=== PATIENT | female | born 1985 | race Caucasian/White ===

== ENCOUNTER 2021-01-05 12:16 | Inpatient (IN) | payer OTHER, SELFPAY ==
[2021-01-05] VITALS (20 sets, daily range): BP systolic 101–126; BP diastolic 56–77; PULSE 63–92; RESP 16; TEMP 35.9–36.5; O2SAT 97–99; BMI 33.1
[2021-01-05] MEDS: Lactated Ringers 1,000 ML 200 ML IV (12:40)
[2021-01-05 12:59] LABS: Absolute Lymphocyte Count 2.16 X10^3/uL (0.83-4.51); Basophil# 0.07 X10^3/uL; Basophil% 0.6 % (0-1); Eosinophil# 0.01 X10^3/uL; Eosinophils% 0.1 % (0-5); Hematocrit 39.1 % (37-47); Hemoglobin 13.5 g/dL (12.0-15.0); Lymphocyte # 2.16 X10^3/ul (0.83-4.51); Lymphocyte % 18.1 % (19-41); Mean Corp Hgb Conc 34.5 g/dL (32-36); Mean Corpuscular Hgb 32.8 pg (27.0-32.0); Mean Corpuscular Volume 94.9 fL (81-99); Mean Platelet Vol. 11.8 fl (6.2-12.0); Monocyte# 0.63 X10^3/uL; Monocyte% 5.3 % (0-10); NRBC Flagged by Analyzer 0 % (0-5); Neutrophil # 9.01 X10^3/uL (2.7-7.7); Neutrophil % 75.2 % (47-70); Platelet Count 178 K/mm3 (150-450); RBC Distribution Width CV 12.9 % (11.6-14.6); RBC Distribution Width SD 44.4 fl (35.1-43.9); Red Blood Count 4.12 M/mm3 (4.2-5.4)
--- NOTE | 2021-01-05 15:07 | PCM.HP.OB ---
HPI - General General Date of Admission: 01/05/21 Date of Service: 01/05/21 Chief Complaint: labor HPI Narrative JAMIE SCHREIBER, is a 35-year-old 3 para 2-0-0-2 who presents at 40-3/7 weeks complaining contractions getting more intense. No vaginal bleeding or leaking of fluid. has been complicated to date by advanced maternal age. She has a history of 2 previous uncomplicated vaginal deliveries. Maternal Data Information Final ESTEFANIA: 01/02/21 Gestational age: 40 3/7 PFSH PFSH Home Medications aspirin [Baby Aspirin] 81 mg PO DAILY 01/05/21 [History Last Taken 1 Day Ago ~01/04/21] ferrous sulfate 325 mg PO DAILY 01/05/21 [History Last Taken 1 Day Ago ~01/04/21] prenat.vits,harman,bfm-[id number] [ Vitamin] 1 tab PO DAILY 01/05/21 [History Last Taken 1 Day Ago ~01/04/21] Allergy/AdvReac Type Severity Reaction Status Date / Time No Known Allergies Allergy Verified 01/05/21 12:14 Social History Smoking Status: Never smoker History Elective abortions Hx Para 2 Spontaneous abortions Hx # Term Pregnancies Ectopic pregnancies Hx # Pregnancies Multiple births # of living children ROS Constitutional Constitutional: Denies fatigue, fever(s) or malaise Eyes Eyes: Denies change in vision ENT HEENT: Denies dizziness or headache(s) Cardiovascular Cardiovascular: Denies chest pain, dyspnea or lightheadedness Respiratory/Chest Respiratory/Chest: Denies cough or dyspnea Gastrointestinal Gastrointestinal: Denies change in bowel habits Genitourinary Genitourinary: Denies burning urination or genital lesions Integumentary Integumentary: Denies rash Neurologic Neurologic: Denies confusion, dizziness, headache(s), numbness or weakness Vital Signs Vital Signs Vital Signs: 01/05/21 11:58 01/05/21 13:36 01/05/21 14:07 Temperature 97.7 F L 97.2 F L Temperature Source Temporal Pulse Rate 63 Blood Pressure 115/75 BP Systolic 115 BP Diastolic 75 Pulse Ox 99 01/05/21 15:03 Temperature 97.0 F L Temperature Source Pulse Rate Blood Pressure BP Systolic BP Diastolic Pulse Ox Weight Weight: 90.4 kg Body Mass Index (BMI) 33.1 Physical Exam Const alert and no apparent distress General Appearance: cooperative HEENT normocephalic Resp normal respiratory effort Cardio regular rate GI soft to palpation GI Narrative: gravid, nontender, appropriate for gestational age Extremity no calf tenderness General Extremity: edema Skin no wounds Rashes: No rashes noted Psych activity/motor behavior normal Labs Labs Labs: Blood Type A POSITIVE Antibody Screen NEGATIVE Hct 39.1 % (37-47) Hgb 13.5 g/dL (12.0-15.0) Assessment & Plan (1) 40 weeks gestation of : PLAN: Patient admitted in labor. Estimated weight is less than 4500 g, pelvis is clinically adequate to expect vaginal delivery. May use nitrous oxide, IV meds or epidural along with alternative pain control methods as needed. Will augment with Pitocin if needed. Group B strep prophylaxis initiated. (2) Advanced maternal age during in third trimester: (3) Spontaneous onset of labor: (4) GBS (group B Streptococcus carrier), +RV culture, currently :
--- NOTE | 2021-01-05 15:12 | EX.PCM.OBRPT ---
Maternal Data Information Final ESTEFANIA: 01/02/21 Gestational age: 40 3/7 Vaginal Delivery Maternal Presentation Maternal Presentation: Active Labor Operative Information Date of Procedure: 01/05/21 Pre-Operative Diagnosis: labor Post-Operative Diagnosis: same Surgery / Procedure Performed: Spontaneous Vaginal Delivery Type of Anesthesia: Local with 1% Lidocaine (10 cc) Special Medications: none Drain: - (none) Estimated Blood Loss: 200 Time of Delivery: 16:13 Findings Description of Procedure: A vigorous male was delivered HAYDE over a second-degree perineal laceration. The anterior shoulder was delivered through the loose nuchal cord. The remainder the was delivered with maternal pushing and gentle traction only in less than 15 seconds. The Pitocin infusion was initiated for active management of the third stage. The cord was clamped and cut after 1 minute. The infant was attended to by the waiting nursing staff. The placenta was delivered spontaneously and intact. The cervix and vagina were intact. The second-degree perineal laceration was repaired with 2-0 Vicryl suture in a running standard fashion. Sponge and needle counts were correct. A vaginal sweep was completed by me. Presentation: HAYDE Amniotic Membrane Rupture Type: Spontaneous Amniotic Fluid Description: Moderate meconium Placental Delivery Description: Spontaneous Placenta Disposition: [facility] Cord Vessel Description: 3 Vessels Cord Entanglement: Around neck x 1, loose Nuchal Cord Compression: Without compression Infant A Gender: Male (Luke) (1 minute): 8 (5 minute): 9 Delayed Cord Clamping: Yes Post Vaginal Delivery Medications Given After Delivery: IV Pitocin Episiotomy Description: None Laceration: 2nd degree Complication Complications: None Admit VTE Documentation VTE Present on Admission: No Reason Prophylaxis Not Ordered: Procedure Not Indicated
[2021-01-05] MEDS: Oxytocin 30 units/NS 500 ml 30 UNITS/500 ML IV.SOLN 334 UNITS IV (16:15)
[2021-01-05] MEDS: Ibuprofen 600 MG Tablet PO ×2 (17:26→23:42)
[2021-01-05] MEDS: Senna/Docusate Sodium 1 Tablet PO (17:26)
[2021-01-05] MEDS: 0.9% Saline Lock 10 ML Syringe IV (18:54)
[2021-01-05] MEDS: Acetaminophen 500 MG Tablet 1000 MG PO (18:54)
[2021-01-05] MEDS: Benzocaine/Lanolin/Aloe Vera 1 SPRAY EACH TOPICAL (19:27)
[2021-01-06] VITALS (8 sets, daily range): BP systolic 105–122; BP diastolic 58–77; PULSE 70–79; RESP 16–18; TEMP 36.3–36.4; O2SAT 98–99
[2021-01-06] MEDS: Acetaminophen 500 MG Tablet 1000 MG PO ×3 (03:08→16:09)
[2021-01-06] MEDS: Ibuprofen 600 MG Tablet PO ×2 (06:46→12:40)
--- NOTE | 2021-01-06 08:25 | PCM.PN.OB ---
Subjective Subjective Denies complaints Objective Data Objective Data Vital Signs: Vital Signs Temp Pulse Resp BP Pulse Ox 97.5 F L 77 18 116/77 99 01/06/21 04:00 01/06/21 04:00 01/06/21 04:00 01/06/21 04:00 01/06/21 04:00 Oxygen Delivery Method Room Air Weight: 199 lb 4.766 oz Body Mass Index (BMI) 33.1 Intake & Output: Intake and Output for Last 24 Hours 01/04/21 01/05/21 01/06/21 23:59 23:59 23:59 Intake Total 1821.67 / 1821.67 Output Total 175 / 175 Balance 1646.67 / 1646.67 Lab / Micro Data Result Diagrams: 01/05/21 12:40 Labs: Laboratory Results - last 24 hr 01/05/21 12:40: WBC 12.0 H, RBC 4.12 L, Hgb 13.5, Hct 39.1, MCV 94.9, MCH 32.8 H, MCHC 34.5, RDW Std Deviation 44.4 H, RDW Coeff of [place] 12.9, Plt Count 178, MPV 11.8, Immature Gran % (Auto) 0.700, Neut % (Auto) 75.2 H, Lymph % (Auto) 18.1 L, [place] % (Auto) 5.3, Eos % (Auto) 0.1, Baso % (Auto) 0.6, Absolute Neuts (auto) 9.0 H, Absolute Lymphs (auto) 2.16, Nucleated RBC % 0 01/05/21 12:40: Blood Type A POSITIVE, Antibody Screen NEGATIVE Micro: Microbiology 01/05/21 12:40 Nasal Secretion SARS-CoV-2 Antigen (Rapid) - Final Physical Exam Const alert, oriented x3 and no apparent distress HEENT normocephalic GI soft to palpation, non-tender and non-distended GI Narrative: fundus firm, mid & below umbilicus Extremity normal to inspection and no calf tenderness Assessment & Plan (1) 40 weeks gestation of : COMMENT: PPD#1 PLAN: Routine care D/c home later today per patient request
--- NOTE | 2021-01-06 08:31 | PCM.DC ---
Discharge Instructions Diet Discharge Diet: No restrictions Activity Discharge Activity: May Shower May resume sexual activity in: 6 weeks Weight Bearing Status: Weight bearing as tolerated Dressing / Incision Call your doctor if you observe: Fever of 101 or Higher, Coldness, Increased Pain, Change in Color, Inability to urinate, Inability to have a bowel movement, Using more than 1 pad per hour, Shortness of breath, Dizziness, Fainting spells, Chest pain, Increased palpitations (irregular heartbeat), Calf discomfort and Uncontrolled pain Follow Up Care Please Follow Up With: Meena Rodriguez MD When: Follow up in 2 and 6 weeks for visits. Test Results: Test results from this visit will be discussed in further detail at your follow-up appointment, if applicable. Discharge Plan Admission Admit Date/Time: 01/05/21 12:16 Primary Reason for Your Visit: Vaginal delivery Attending Provider: Meena Rodriguez Discharge Orders/Prescriptions Prescriptions: New acetaminophen 500 mg Tablet 1,000 mg PO Q6H PRN PRN (Reason: Pain 1-10 Or Fever) Qty: 0 RF: 0 ibuprofen 600 mg Tablet 600 mg PO Q6H PRN PRN (Reason: Pain Score 1-3) Qty: 0 RF: 0 Continued prenat.vits,harman,[id number] Tablet 1 tab PO DAILY RF: 0 Discontinued ferrous sulfate 325 mg (65 mg iron) Tablet 325 mg PO DAILY RF: 0 aspirin [Baby Aspirin] 81 mg Tablet,Chewable 81 mg PO DAILY RF: 0 Disposition Disposition (needs filled in before D/C Order can be placed): Home, Self Care
[2021-01-06] MEDS: Senna/Docusate Sodium 1 Tablet PO (12:40)
== END 2021-01-06 17:30 | disposition home or self-care (01) | DRG 806 ==
LOC: WPOUT 12:19 → WP 12:19
PROVIDERS: Admitting Provider Obstetrics & Gynecology; Visit Provider Obstetrics & Gynecology
DX: O48.0 Post-term pregnancy (principal); O98.82 Other maternal infectious and parasitic diseases complicating childbirth; Z37.0 Single live birth; B95.1 Streptococcus, group B, as the cause of diseases classified elsewhere; O70.1 Second degree perineal laceration during delivery; O77.0 Labor and delivery complicated by meconium in amniotic fluid; O69.81X0 Labor and delivery complicated by cord around neck, without compression, not applicable or unspecified; Z3A.40 40 weeks gestation of pregnancy; Z79.82 Long term (current) use of aspirin
CPT/HCPCS: 59025; 59050; 85025; 86850; 86900; 86901; 87426; 99218; J7120; A4216; G0378

== ENCOUNTER 2023-09-10 07:21 | Inpatient (IN) | payer OTHER, SELFPAY ==
[2023-09-10] VITALS (28 sets, daily range): BP systolic 91–130; BP diastolic 57–103; PULSE 67–110; RESP 16–18; TEMP 35.6–36.5; O2SAT 98–99; BMI 33.9
[2023-09-10] MEDS: Lactated Ringers 1,000 ML 50 ML IV (08:00)
--- NOTE | 2023-09-10 08:11 | PCM.HP.OB ---
HPI - General General Date of Admission: 09/10/23 HPI Narrative JAMIE SCHREIBER, is a 38 F @ 41 weeks who presents for IOL for POST EDC, AMA LGA fetus. PFSH PFSH Medical History (Updated 09/10/23 @ 08:33 by Racquel Leal) Oligohydramnios Home Medications ?Medication ?Instructions ?Recorded ?Last Taken ?Type prenat.vits,harman,vmo-cvcm-[id number] 1 tab PO DAILY 01/05/21 09/10/23 History acetaminophen 500 mg tablet 1,000 mg (2 x 500 mg) PO Q6H PRN 01/06/21 Unknown Rx PRN Pain 1-10 Or Fever #0 tabs ibuprofen 600 mg tablet 600 mg PO Q6H PRN PRN Pain Score 01/06/21 Unknown Rx 1-3 #0 tabs aspirin 81 mg capsule 81 mg PO DAILY AMA 09/10/23 09/10/23 History magnesium 250 mg tablet 250 mg PO DAILY anemia 09/10/23 09/10/23 History Allergy/AdvReac Type Severity Reaction Status Date / Time No Known Allergies Allergy Verified 09/10/23 08:09 Surgical History (Updated 01/05/21 @ 16:53 by Terry Gallardo) History of surgery Social History Smoking Status: Never smoker History Elective abortions Hx Para 3 Spontaneous abortions Hx # Term Pregnancies Ectopic pregnancies Hx # Pregnancies Multiple births # of living children NST FHR Rate Baby A Baseline: 145 Variability:: Moderate Accelerations:: 15 x 15 Decelerations:: None NST Reactive:: Yes FHR Category:: Category I Uterine Activity:: irregular Physical Exam Narrative VE; 1.5cm- transcervical darden placed Labs Labs Labs: Blood Type A POSITIVE Antibody Screen NEGATIVE Hct 38.3 % (37-47) Hgb 12.9 g/dL (12.0-15.0) Syphilis Total Ab Pending Rhogam given: No Assessment & Plan (1) AMA (advanced maternal age) multigravida 35+: (2) LGA (large for gestational age) fetus affecting mother, antepartum: (3) 41 weeks gestation of : PLAN: Plan Admit to L&D [place] FHR/TOCO Epidural if requested for pain Monitor VS Anticipate darden/pitocin for IOL
[2023-09-10] MEDS: 0.9% Normal Saline Single 100 ML IV.SOLN. INTRA-UTER (08:40)
[2023-09-10 08:51] LABS: Absolute Lymphocyte Count 2.49 X10^3/uL (0.83-4.51); Absolute Neutrophil Count 5.9 X10^3/uL (2.0-7.7); Basophil# 0.05 X10^3/uL; Basophil% 0.5 % (0-1); Eosinophil# 0.05 X10^3/uL; Eosinophils% 0.5 % (0-5); Hematocrit 38.3 % (37-47); Hemoglobin 12.9 g/dL (12.0-15.0); Lymphocyte # 2.49 X10^3/ul (0.83-4.51); Lymphocyte % 26.9 % (19-41); Mean Corp Hgb Conc 33.7 g/dL (32-36); Mean Corpuscular Hgb 32.2 pg (27.0-32.0); Mean Corpuscular Volume 95.5 fL (81-99); Mean Platelet Vol. 11.9 fl (6.2-12.0); Monocyte# 0.73 X10^3/uL; Monocyte% 7.9 % (0-10); NRBC Flagged by Analyzer 0 % (0-5); Neutrophil # 5.86 X10^3/uL (2.7-7.7); Neutrophil % 63.3 % (47-70); Platelet Count 191 K/mm3 (150-450); Red Blood Count 4.01 M/mm3 (4.2-5.4); White Blood Count 9.3 K/mm3 (4.4-11.0)
[2023-09-10] MEDS: Oxytocin 15 Units/NS 250ml 15 UNITS/250 ML IV.SOLN 2 UNITS IV (09:00)
[2023-09-10] MEDS: Penicillin G Pot 5,000,000 UNITS in 0.9% Normal Saline (100mL MB+) 100 ML 150 UNITS IV (09:02)
[2023-09-10 09:23] LABS: Syphilis Antibodies Non-reactive
--- NOTE | 2023-09-10 12:48 | PCM.PN.BLA ---
Progress Note pt seen at bedside, VE performed VE; /-2 SROM- clear fluid.
[2023-09-10] MEDS: Penicillin G 3,000,000 Units 50 ML 100 UNITS IV (13:03)
--- NOTE | 2023-09-10 14:37 | EX.PCM.OBRPT ---
Assessment & Plan (1) 41 weeks gestation of : (2) AMA (advanced maternal age) multigravida 35+: (3) (spontaneous vaginal delivery): Maternal Data Information Final ESTEFANIA: 09/03/23 Gestational age: 41 Vaginal Delivery Maternal Presentation Maternal Presentation: Medically Indicated Induction Type of Induction: Pitocin, Moss Bulb and Amniotomy Operative Information Date of Procedure: 09/10/23 Pre-Operative Diagnosis: labor Post-Operative Diagnosis: same Surgery / Procedure Performed: Spontaneous Vaginal Delivery Type of Anesthesia: None Special Medications: none Drain: - (none) Estimated Blood Loss: 200 Time of Delivery: 14:20 Findings Description of Procedure: A vigorous male was delivered ANIKA over an intact perineum. A loose nuchal cord ?1 was easily reduced. The remainder the was delivered with maternal pushing and gentle traction only in less than 15 seconds. The Pitocin infusion was initiated for active management of the third stage. The cord was clamped and cut after cord pulsations ceased. The was attended to by the waiting nursing staff. The placenta was delivered spontaneously and intact. The cervix and vagina were intact. Sponge and needle counts were correct. A vaginal sweep was completed by me. Presentation: ANIKA Amniotic Membrane Rupture Type: Artificial Amniotic Fluid Description: Clear Placental Delivery Description: Spontaneous Placenta Disposition: [facility] Specimen(s) Removed: none Cord Vessel Description: 3 Vessels Cord Entanglement: Around neck x 1, loose Nuchal Cord Compression: Without compression A Gender: Male (Jeovany) (1 minute): 8 (5 minute): 9 Delayed Cord Clamping: Yes Post Vaginal Delivery Medications Given After Delivery: IV Pitocin Episiotomy Description: None Laceration: None Complication Complications: None
[2023-09-10] MEDS: Oxytocin 15 Units/NS 250ml 15 UNITS/250 ML IV.SOLN 83 UNITS IV (14:55)
[2023-09-10] MEDS: Acetaminophen 500 MG Tablet 1000 MG PO ×2 (16:39→22:52)
[2023-09-10] MEDS: Ibuprofen 600 MG Tablet PO ×2 (17:56→23:48)
[2023-09-10] MEDS: 0.9% Saline Lock 10 ML Syringe IV (17:56)
[2023-09-11] VITALS (12 sets, daily range): BP systolic 91–115; BP diastolic 64–74; PULSE 71–86; RESP 16; TEMP 36.1–36.6; O2SAT 96–99
[2023-09-11] MEDS: Acetaminophen 500 MG Tablet 1000 MG PO ×2 (05:10→13:31)
[2023-09-11] MEDS: Ibuprofen 600 MG Tablet PO ×2 (06:02→14:34)
--- NOTE | 2023-09-11 09:00 | DS.PCM_ITS ---
Providers Date of Admission: 09/10/23 Primary Care Physician: Dr. Emily Chacon MD Reason For Visit: VAGINAL DELIVERY Diagnosis Discharge Diagnosis (1) 41 weeks gestation of : Status: Acute Code(s): O48.0 - Post-term ; Z3A.41 - 41 weeks gestation of (2) AMA (advanced maternal age) multigravida 35+: Status: Acute Code(s): O09.529 - Supervision of elderly multigravida, unspecified trimester (3) (spontaneous vaginal delivery): Status: Acute Code(s): O80 - Encounter for full-term uncomplicated delivery Medications at Discharge Home Medications prenat.vits,harman,qrk-pccc-gvvcu 1 tab PO DAILY 01/05/21 acetaminophen 500 mg tablet 1,000 mg (2 x 500 mg) PO Q6H PRN PRN Pain 1-10 Or Fever #0 tabs 01/06/21 ibuprofen 600 mg tablet 600 mg PO Q6H PRN PRN Pain Score 1-3 #0 tabs 01/06/21 aspirin 81 mg capsule 81 mg PO DAILY AMA 09/10/23 magnesium 250 mg tablet 250 mg PO DAILY anemia 09/10/23 Hospital Course Operations None Procedures None Summary of Care Provided Minutes Spent on Discharge: 15 Hospital Course: Patient had . Hospital course was uneventful Physical Exam Narrative Patient seen at bedside. without difficulty. Lochia decreasing. Denies pain. Desires discharge home today. Const alert and no apparent distress General Appearance: cooperative and comfortable Exam Limitations: no limitations HEENT normocephalic Eyes General Eye: normal appearance of both eyes Neck full ROM General: normal visual inspection Chest Chest: symmetrical chest wall rise Resp normal respiratory effort and normal air movement Effort and Inspection: symmetric chest movement Auscultation: clear to auscultation bilaterally Cardio regular rate and regular rhythm GI normal to inspection, nondistended, normoactive bowel sounds Back/Spine normal ROM Extremity full ROM and no calf tenderness General Extremity: normal exam except as noted Skin no rashes or lesions noted Neuro CN's II-XII intact bilaterally Psych mental status grossly normal Weight / BMI Weight Weight: 204 lb Body Mass Index (BMI) 33.9 ABG / Lab / Microbiology Data 09/10/23 08:00 Laboratory: Laboratory Results - last 24 hr 09/10/23 08:00: Syphilis Total Ab Non-reactive, Antibody Screen NEGATIVE D/C Instructions Discharge Diet: No restrictions May resume sexual activity in: 6-8 weeks Weight Bearing Status: Weight bearing as tolerated Call your doctor if you observe: Fever of 101 or Higher, Inability to urinate, Using more than 1 pad per hour, Shortness of breath, Chest pain, Calf discomfort and Uncontrolled pain When: 2 weeks virtual visit/ 6 weeks in office Meaningful Use Info Meaningful Use Meaningful Use Diagnoses (Choose all that apply): None applicable Ischemic Stroke Statin Dosing Therapy Reference: STATIN DOSE THERAPY REFERENCE: * Patients > 75 years receive moderate or high dose statin therapy. * Patients 75 years or YOUNGER should receive HIGH intensity statin dose unless contraindicated. You will be required to document reason for non-treatment if statin daily dose does not meet guidelines. HIGH DOSE STATIN THERAPY DAILY Atorvastatin > than or = to 40 mg Rosuvastatin > than or = to 20 mg Amlodipine + Atorvastatin > than or = to 2.5/40 mg Ezetimibe + Simvastatin 10/80 mg Simvastatin 80mg Discharge Plan Admission Admit Date/Time: 09/10/23 07:21 Attending Provider: Meena Rodriguez Primary Care Provider: Emily Chacon Discharge Orders/Prescriptions Prescriptions: No Action prenat.vits,harman,yif-jblz-muion Tablet 1 tab PO DAILY acetaminophen 500 mg Tablet 1,000 mg PO Q6H PRN PRN (Reason: Pain 1-10 Or Fever) Qty: 0 0RF ibuprofen 600 mg Tablet 600 mg PO Q6H PRN PRN (Reason: Pain Score 1-3) Qty: 0 0RF magnesium 250 mg tablet 250 mg PO DAILY aspirin 81 mg capsule 81 mg PO DAILY Referrals / Follow Up: Becki Cespedes CNM [Med Staff - [facility], 1928–1983 Practice Prof] - Emily Chacon MD [Primary Care Provider] - Disposition Disposition (needs filled in before D/C Order can be placed): Home, Self Care
== END 2023-09-11 15:55 | disposition home or self-care (01) | DRG 807 ==
PROVIDERS: Advanced Practice Midwife; Admitting Provider Obstetrics & Gynecology; PCP Family Medicine; Referring Provider Obstetrics & Gynecology; Visit Provider Obstetrics & Gynecology
DX: O48.0 Post-term pregnancy (principal); Z37.0 Single live birth; O36.63X0 Maternal care for excessive fetal growth, third trimester, not applicable or unspecified; O69.81X0 Labor and delivery complicated by cord around neck, without compression, not applicable or unspecified; Z3A.41 41 weeks gestation of pregnancy
CPT/HCPCS: 59025; 59050; 85025; 86780; 86850; 86900; 86901; 99221; J7120; A4216; G0378